=== PATIENT | male | born 1950 | race Caucasian/White ===

== ENCOUNTER → 2021-05-23 | Outpatient (CLI) | payer MEDICARE | END | disposition home or self-care (01) | LOC: LABPAT 08:46 | PROVIDERS: ATTEND Orthopaedic Surgery | DX: Z01.812 Encounter for preprocedural laboratory examination (principal); M19.011 Primary osteoarthritis, right shoulder; Z22.322 Carrier or suspected carrier of Methicillin resistant Staphylococcus aureus | CPT/HCPCS: 87070 ==

== ENCOUNTER 2021-06-24 06:37 | Day surgery (SDC) | payer MEDICARE ==
[2021-06-23 08:37] VITALS: BMI 35.9
--- NOTE | 2021-06-23 09:53 | HP ---
HISTORY AND PHYSICAL CHIEF COMPLAINT: Right shoulder pain. HISTORY OF PRESENT ILLNESS: The patient is a 71-year-old, right-hand dominant, retired gentleman who presents with progressive right shoulder pain for the past 5 years. He is having pain with overhead use and with activity. He also notes night symptoms. He has tried medications in addition to an injection and therapy, without much relief. He notes the pain bothers him daily and is limiting. PAST MEDICAL HISTORY: Significant for hyperlipidemia, hypertension, arthritis. PAST SURGICAL HISTORY: Negative. CURRENT MEDICATIONS: Enalapril and simvastatin. ALLERGIES: HE DENIES DRUG ALLERGIES. FAMILY HISTORY: Significant for stroke. SOCIAL HISTORY: Significant for social alcohol use. REVIEW OF SYSTEMS: Sixteen-point review of systems otherwise is reviewed and is noncontributory. PHYSICAL EXAMINATION: On examination, the patient is approximately 5 feet 9 inches, 238 pounds of endomorphic habitus. HEENT exam is nonfocal. Neck is supple. On examination of his right shoulder, he is tender about the anterior subacromial space and anterior glenohumeral joint. He has moderate crepitus. Active range of motion forward elevation 80 degrees, external rotation with arm to side 20 degrees, internal rotation to L5. Motor strength 5/5 for abduction and external rotation. Impingement test, Neer test, and Speed's test are positive. His distal neurovascular exam appears intact in the right upper extremity. X-rays to include AP, axillary, lateral and outlet views of the right shoulder show a severely arthritic joint with [id number] changes and subchondral sclerosis. The humeral head to acromial distance appears to be maintained. MRI of the right shoulder shows evidence of a partial-thickness rotator cuff tear in addition to rupture of the long head of the biceps and severe degenerative joint disease. IMPRESSION: Right severe glenohumeral joint osteoarthrosis. RECOMMENDATIONS: I talked to the patient at length regarding his condition along with treatment options. At this point he is quite limited because of pain related to his osteoarthrosis despite previous conservative measures. After thorough discussion, he opted to proceed with surgery. We will plan to proceed with right total shoulder arthroplasty. We will potentially keep the patient for a 23-hour hold postoperatively. Risks and benefits were discussed at length in layman's terms. MMODL / IJN: [id number] /
[~2021-06-24 06:37] MED LIST: ACETAMINOPHEN TAB 500 MG TAB PO PRN; LIDOCAINE 1% (10MG/ML) FOR IV START INTRADERMA PRN; MELOXICAM 7.5 MG TAB PO PRN; ONDANSETRON 4 MG/2 ML VIAL IVP ONE; TRANEXAMIC ACID 1,000 MG in SODIUM CHLORIDE 0.9% 100 ML IVPB PRN
[2021-06-24] MEDS: LACTATED RINGERS 1,000 ML IV SCH (06:58)
[2021-06-24] MEDS ORDERED: HYDROmorphone 0.5 MG/0.5 ML SYRINGE IVP PRN ×2 (07:00→10:01)
[2021-06-24] MEDS ORDERED: DEXAMETHASONE SOD PHOSPHATE 4 MG/ML 1 ML VIAL IVP ONE (07:17)
[2021-06-24] MEDS ORDERED: HYDROmorphone (PF) 1 MG/ML ONE (07:52)
[2021-06-24] MEDS ORDERED: PHENYLEPHRINE-0.9% NACL SYG 1,000 MCG/10 ML SYRINGE ONE (07:52)
[2021-06-24] MEDS ORDERED: LIDOCAINE 1% INJ 10MG/ML (20 ML MDV) ONE (07:52)
[2021-06-24] MEDS ORDERED: TRANEXAMIC ACID 1,000 MG/10 ML VIAL ONE (07:52)
[2021-06-24] MEDS ORDERED: fentaNYL (PF) 50 MCG/ML 2 ML AMP ONE (07:52)
[2021-06-24] MEDS ORDERED: SUCCINYLCHOLINE CHLORIDE VIAL 200 MG/10 ML VIAL IV ONE (07:52)
[2021-06-24] MEDS ORDERED: PROPOFOL 10 MG/ML 20 ML VIAL IV ONE (07:52)
[2021-06-24] MEDS ORDERED: ROCURONIUM 10 MG/ML (5 ML VIAL) IV ONE (07:52)
[2021-06-24] MEDS ORDERED: MIDAZOLAM 2 MG/2 ML VIAL ONE (07:52)
[2021-06-24] MEDS ORDERED: SODIUM CHLORIDE 0.9% 100 ML BAG ONE (07:52)
[2021-06-24] MEDS ORDERED: ceFAZolin 1,000 MG in SODIUM CHLORIDE 0.9% 1,000 ML IRRIGATION ONE (08:33)
[2021-06-24] MEDS ORDERED: SENNOSIDES-DOCUSATE SODIUM 1 EACH TAB PO PRN (10:01)
[2021-06-24] MEDS ORDERED: ONDANSETRON 4 MG/2 ML VIAL IVP PRN (10:01)
[2021-06-24] MEDS ORDERED: HYDROcodone/APAP 5-325MG 1 EACH TAB PO PRN (10:01)
[2021-06-24] MEDS ORDERED: ACETAMINOPHEN TAB 325 MG TAB PO PRN (10:03)
[2021-06-24] MEDS ORDERED: LACTATED RINGERS 1,000 ML IV ONE (10:06)
--- NOTE | 2021-06-24 10:26 | P.OP ---
Date of Procedure: 06/24/21 Preoperative Diagnosis: Right severe glenohumeral joint osteoarthrosis Postoperative Diagnosis: Same Procedure(s) Performed: Right total shoulder arthroplasty Implants: Arthrex Eclipse size 47 standard humeral head, medium cage, large cemented glenoid component. 3 push lock anchors and 2 corkscrew anchors were also utilized. Anesthesia: belle RINCON Surgeon: Barrett Bauer Solar Installation Technician #1: Surjit Forbes Estimated Blood Loss (ml): 150 Pathology: other (Humeral head) Condition: stable Disposition: PACU Indications for Procedure: The patient's a 71-year-old male who presents with progressive right shoulder pain secondary to osteoarthrosis despite previous conservative measures. A discussion of the risks and benefits of operative intervention versus continued conservative measures was made with patient. He opted to proceed with surgery. Operative risks to include infection, neurovascular injury, fracture, component loosening, instability, possible need for subsequent procedures was discussed. Informed consent was obtained. Operative Findings: As below Description of Procedure: The patient was brought to the operating room, and after induction of general an esthesia was placed in the beachchair position. The bony prominences were appropriately padded. The right upper extremity was prepped and draped in normal fashion. A deltopectoral incision was then made lateral to the coracoid process extending approximately 12 cm. The skin was incised sharply. Subcutaneous tissues were divided bluntly. Electrocautery was used for hemostasis. The deltopectoral interval was identified and the cephalic vein gently retracted laterally with the deltoid. Subdeltoid adhesions were bluntly dissected. A self-retaining retractor was placed. The clavipectoral fascia was opened and the conjoined tendon gently retracted medially. The upper one third of the pectoralis major was released to help facilitate exposure. The biceps was previously ruptured. The rotator interval was opened. The subscapularis peel was performed. The humeral head was then exposed releasing the capsule off the humeral neck. The shoulder was gently dislocated. The cutting guide was placed planning on a cut flush with the rotator cuff insertion and 30 of retroversion. The cutting block was pinned in place. The humeral head cut was then made. This measured most appropriately at 47 mm. Residual inferior osteophytes were carefully removed flush with the kaibab cortical bone. The proximal humerus was then prepared with the appropriate pull up hand. This was protected with a metal cap. A posterior glenoid retractor was placed. The glenoid was then exposed releasing the labrum from the 12-6 o'clock position. Residual labral tissue was removed. The glenoid sized most at a large. A guidewire was then inserted planning on the appropriate version. The glenoid was reamed down to a bleeding bony surface. The central pedicle was drilled. The alignment guide was placed in the superior and inferior peg holes were drilled. The inferior punch was inserted. The trial size large glenoid was placed and was fully seated. There was good anterior to posterior and inferior to superior fit. The trial component was removed. Pulsatile lavage was utilized. The bony surface was dried. The superior and inferior peg holes were then pressurized with cement utilizing a syringe. Excess cement was removed. A central peg glenoid was then placed and was fully seated. This was gently impacted. This was held in place until the cement had sufficiently hardened. A ttention was then paid again towards preparing the proximal humerus. The proximal humerus was then prepared and it was felt a medium cage was most appropriate. The trunnion was placed and then the cage screw was inserted fully. Good purchase was obtained. A trial 47 standard head was placed. The shoulder was gently reduced. It was taken through a range of motion. It was felt to be stable in flexion and extension with internal and external rotation. I felt there was adequate moravian of soft tissue tension. The shoulder was gently dislocated. The trial components were then removed. The final 47 mm head was gently impacted. The subscapularis was repaired utilizing a speed scap technique with 3 medial anchors and 2 lateral anchors. The rotator interval was closed with #2 Ethibond suture. There was minimal drainage at this point therefore a deep drain was not placed. The deltopectoral interval was closed with interrupted 2-0 Vicryl sutures. The subcu tissues were reapproximated with interrupted 2-0 Vicryl sutures. The skin was reprepped with 3-0 subcuticular Prolene suture. Steri-Strips were applied. A sterile dressing was applied in addition to a sling. The patient was then awoken from general anesthesia and transferred to recovery room in good condition. Blood loss was estimated at [] mL. No complications were incurred. Sponge and needle counts were correct at the end the case. Surjit URIBE assisted intimated case to include positioning, exposure, implantation, and closure.
[2021-06-24] MEDS ORDERED: KETOROLAC 15 MG/ML 1 ML VIAL ONE (10:35)
[2021-06-24] MEDS ORDERED: ROPIVACAINE 5 MG/ML 30 ML VIAL MISCELLANE ONE (10:54)
--- NOTE | 2021-06-24 11:26 | XR ---
EXAMINATION TYPE: XR shoulder complete RT DATE OF EXAM: 06/24/2021 CLINICAL HISTORY: Right shoulder surgery. TECHNIQUE: Single portable view of the right shoulder is obtained. COMPARISON: Outside right shoulder x-ray May 22, 2021 FINDINGS: Metallic hardware from right humeral head arthroplasty now present. Position satisfactory o n portable frontal projection. Glenoid cavity shows sclerosis and central erosive changes similar to prior. IMPRESSION: As above.
--- NOTE | 2021-06-24 11:59 | P.ANPRN ---
Procedure Note - Anesthesia - Nerve Block Performed Right Interscalene Single Time Out Performed: Yes (1121) Date of Procedure: 06/24/21 Procedure Start Time: Procedure Stop Time: Location of Patient: Phase I Indication: Acute Post-Operative Pain, Requested by Surgeon Specifically requested for management of pain by : Barrett Bauer Sedation Type: Sedate with meaningful contact maintained Preparation: Sterile Prep Position: Supine Catheter: None Needle Types: Pajunk Needle Gauge: 21 Ultrasound used to visualize needle placement: Yes Ultrasound used to observe medication spread: Yes Injectate: 0.5% Ropivacaine (see comment for volume) (20cc) Blood Aspirated: No Pain Paresthesia on Injection Noted: No Resistance on Injection: Normal Image Stored and Saved: Yes Events: Uneventful and Well Tolerated
[2021-06-25] MEDS: HYDROcodone/APAP 5-325MG 1 EACH TAB PO PRN ×2 (05:25→11:10)
[2021-06-25] MEDS: LACTATED RINGERS 1,000 ML IV SCH (05:34)
[2021-06-25] MEDS ORDERED: ASPIRIN 325 MG TAB PO SCH (09:00)
[2021-06-25] MEDS ORDERED: lisinopriL 5 MG TAB PO SCH (09:00)
[2021-06-25 09:02] LABS: HCT 40.7 % (39.6-50.0); HGB 12.6 g/dL (13.0-17.0); MCH 30.6 pg (27.0-32.0); MCV 98.8 fL (80.0-97.0); Mean Platelet Volume 9.9 fL (9.5-12.2); Platelet Count 207 X 10*3/uL (140-440); RBC 4.12 X 10*6/uL (4.40-5.60); RDW 12.7 % (11.5-14.5); WBC 12.42 X 10*3/uL (4.50-10.00)
--- NOTE | 2021-06-25 10:00 | P.DS ---
Providers Date of admission: 06/24/2021 Expected date of discharge: 06/25/21 Attending physician: Barrett Bauer Consults: 06/24/21 10:01 Consult Physician Routine Consulting Provider: [facility] Reason/Comments: medical management Do you want consulting provider notified?: Yes Primary care physician: Stated None Hospital Course: Date of admission: 06/24/2021 Date of discharge: 06/25/2021 Admission diagnosis: Right shoulder severe glenohumeral joint osteoarthrosis Discharge diagnosis: Same Attending physician: Dr. Bauer Surgical procedures: Right total shoulder arthroplasty Brief history: Patient is a 71-year-old male with a history of presents with progressive primary right shoulder glenohumeral joint osteoarthrosis. At this point patient has failed conservative treatment measures and has opted to proceed with a elective right total shoulder arthroplasty. Hospital course: Details of patient's surgery can be found in operative report. Patient tolerated the procedure well and was subsequently transported to orthopedic floor. Patient's orthopeidc and medical care was provided daily. Patient had daily laboratory tests performed for evaluation of overall blood counts. Patient had daily physical therapy to include strengthening range of motion as well as education with walker ambulation. Patient was noted to have a relatively uneventful postoperative course. Patient reported satisfactory pain control with oral pain medications by postoperative day 1. Patient showed satisfactory progress with physical therapy. Patient moved steadily through the program and had no difficulty meeting the goals by postoperative day 1. Given patient's otherwise satisfactory course and having met physical therapy goals, plan is to discharge patient home on postoperative day 1. Discharge condition/disposition: Patient will be discharged home in stable condition. Discharge medications: Instructions are given on resumption of patient's normal daily medications per primary care recommendation, in addition patient will be prescribed [place]ckenna 7.5 mg/325mg; Aspirin 325 mg daily Discharge instructions: 1. Wound care and infection precautions, keep incision dry and covered while showering, no lotions, creams, moisturizers. No soaking, tubs, pools, hottubs. Do not scrub over the incision. 2. Weight-bear as tolerated 3. Ice when necessary. Do not exceed 20 minutes per hour with ice pack. 4. Keep sling on until visit with us in 2 weeks in office. May flex and extend at the wrist and elbow. May take the sling off during meals. 5. Pain meds per prescription. 6. Pain medication has potential to cause constipation. Increase oral fluid and fiber intake. Contact primary care provider if you have not had a bowel movement within 48 hours after discharge 7. No anti-inflammatory medication until discussed at first post operative visit, this including Motrin, Aleve, Mobic, Diclofenac. 8. Follow up in office at 2 weeks postop with Baljeet Pike PA-C / Surjit Forbes PA-C 9. Follow up with your primary care doctor 7-10 days after discharge. 10. Contact [facility] with any questions, . Assessment: Right shoulder severe glenohumeral joint osteoarthrosi Procedures: Right total shoulder arthroplasty Patient Condition at Discharge: Good Plan - Discharge Summary Discharge Rx Participant: Yes New Discharge Prescriptions: New HYDROcodone/APAP 5-325MG [[place] 5-325] 1 tab PO Q6HR PRN #32 tab PRN Reason: Pain Aspirin 325 mg PO DAILY #30 tab No Action Simvastatin [Zocor] 10 mg PO HS Naproxen Sodium [Aleve] 440 mg PO DAILY Enalapril Maleate [Vasotec] 5 mg PO DAILY Bliss-3 Fatty Acids/Fish Oil [Fish Oil 1,000 mg Softgel] 1 each PO DAILY Multivitamins, Thera [Multivitamin (formulary)] 1 tab PO DAILY Vitamin E 100 unit PO DAILY Vitamin B Complex 1 each PO DAILY Glucosamine HCl/Chondroitin Mireles [Glucosamine-Chondroitin Cap] 1 each PO DAILY Discharge Medication List Enalapril Maleate [Vasotec] 5 mg PO DAILY 06/23/21 [History] Glucosamine HCl/Chondroitin Mireles [Glucosamine-Chondroitin Cap] 1 each PO DAILY 06/23/21 [History] Multivitamins, Thera [Multivitamin (formulary)] 1 tab PO DAILY 06/23/21 [History] Naproxen Sodium [Aleve] 440 mg PO DAILY 06/23/21 [History] Bliss-3 Fatty Acids/Fish Oil [Fish Oil 1,000 mg Softgel] 1 each PO DAILY 06/23/21 [History] Simvastatin [Zocor] 10 mg PO HS 06/23/21 [History] Vitamin B Complex 1 each PO DAILY 06/23/21 [History] Vitamin E 100 unit PO DAILY 06/23/21 [History] Aspirin 325 mg PO DAILY #30 tab 06/25/21 [Rx] HYDROcodone/APAP 5-325MG [[place] 5-325] 1 tab PO Q6HR PRN #32 tab 06/25/21 [Rx] Follow up Appointment(s)/Referral(s): Surjit Forbes PAC [PHYSICIAN [employer]] - 07/10/21 9:20 am Patient Instructions/Handouts: Shoulder Arthroplasty (GEN) Activity/Diet/Wound Care/Special Instructions: Discharge instructions: 1. Wound care and infection precautions, keep incision dry and covered while showering, no lotions, creams, moisturizers. No soaking, tubs, pools, hottubs. Do not scrub over the incision. 2. Weight-bear as tolerated 3. Ice when necessary. Do not exceed 20 minutes per hour with ice pack. 4. Keep sling on until visit with us in 2 weeks in office. May flex and extend at the wrist and elbow. May take the sling off during meals. 5. Pain meds per prescription. 6. Pain medication has potential to cause constipation. Increase oral fluid and fiber intake. Contact primary care provider if you have not had a bowel movement within 48 hours after discharge 7. No anti-inflammatory medication until discussed at first post operative visit, this including Motrin, Aleve, Mobic, Diclofenac. 8. Follow up in office at 2 weeks postop with Baljeet Pike PA-C / Surjit Forbes PA-C 9. Follow up with your primary care doctor 7-10 days after discharge. 10. Contact [facility] with any questions, . Take Aspirin 325 mg daily x 2 weeks Discharge Disposition: HOME SELF-CARE
--- NOTE | 2021-06-25 10:01 | P.PN ---
Subjective Progress Note Date: 06/25/21 Principal diagnosis: Right shoulder severe glenohumeral joint osteoarthrosis Patient was seen at bedside this morning resting comfortably sitting semirecumbent. Patient states his pain as 3/10 currently. He says he has not gotten up today, however, he says he did get up yesterday walker on room. He mentions this sling is somewhat uncomfortable. Patient says he is ready to go home today. Patient denies chest pain, fever, shortness of breath, nausea, vomiting, change in vision, loss of bowel/bladder control. Patient denies any numbness/tingling in the arm. Objective - Vital Signs Vital signs: Vital Signs Temp 98.0 F 06/25/21 07:52 Pulse 67 06/25/21 07:52 Resp 16 06/25/21 07:52 BP 141/76 06/25/21 07:52 Pulse Ox 91 L 06/25/21 07:52 Intake & Output 06/24/21 06/25/21 06/25/21 18:59 06:59 18:59 Intake Total 851 236 Output Total 150 4 200 Balance 701 -4 36 Weight 108.9 kg Intake: IV 851 Oral 236 Output: Urine 4 200 Estimated Blood Loss 150 Other: # Voids 1 3 1 - Exam Right shoulder: Incision is clean, dry, intact. There is no evidence of purulence/fluctuance/d rainage from incision. Sutures intact. There is minimal ecchymosis/swelling. There is some tenderness to palpation along the anterior right shoulder region. Sensation is equal, symmetric, bilaterally intact in upper extremities. Radial pulses intact, bilaterally 2+. Cap refill under 3 seconds bilaterally in digits of upper extremity - Labs CBC & Chem 7: 06/25/21 05:35 Labs: Abnormal Lab Results - Last 24 Hours (Table) 06/25/21 Range/Units 05:35 WBC 12.42 H (4.50-10.00) X 10*3/uL RBC 4.12 L (4.40-5.60) X 10*6/uL Hgb 12.6 L (13.0-17.0) g/dL MCV 98.8 H (80.0-97.0) fL MCHC 31.0 L (32.0-37.0) g/dL Assessment and Plan Assessment: Postoperative day #1 status post right total shoulder arthroplasty Plan: 1. Right shoulder severe glenohumeral joint osteoarthrosis - right total shoulder arthroplasty performed yesterday, 06/24/2021. Patient stable this morning plan for discharge home today. 2. Appreciate medical management 3. Pain management - stable at this time. Going home with [place] 5 mg/325 mg 4. DVT prophylaxis - aspirin 325 mg; going home with aspirin 325 mg 5. GI prophylaxis - senna 6. PT/OT - nonweightbearing right arm. 7. Discharge planning - plan for discharge home today. Time with Patient: Less than 30
[2021-06-25 10:35] LABS: Basophils # (A) 0.02 X 10*3/uL (0.00-0.10); Basophils % (A) 0.2 %; Eosinophils # (A) 0.03 X 10*3/uL (0.04-0.35); Eosinophils % (A) 0.2 %; Lymphocytes # (A) 2.08 X 10*3/uL (0.90-5.00); Lymphocytes % (A) 16.7 %; Monocytes % (A) 12.9 %; Neutrophils # (A) 8.64 X 10*3/uL (1.80-7.70); Neutrophils % (A) 69.6 %
[2021-06-25 11:46] VITALS: BP 156/70; PULSE 66; RESP 18; TEMP 98.1
[2021-06-25] MEDS ORDERED: ATORVASTATIN 10 MG TAB PO SCH (21:00)
--- NOTE | 2021-06-25 23:46 | P.CONS ---
History of Present Illness - Reason for Consult Consult date: 06/25/21 Medical management - Chief Complaint Status post Right total shoulder arthroplasty - History of Present Illness Patient is a 71-year-old male with a known history of hypertension, hyperlipidemia, osteoarthritis, obstructive sleep apnea on CPAP at home and previous history of smoking was admitted to the hospital for elective right total shoulder arthroplasty. Patient developed right shoulder pain and severe glenohumeral humeral joint osteoarthritis. Failed conservative measures and patient was admitted to the hospital for surgery. Patient is status post surgery postoperative day 1. Currently right shoulder pain is better controlled. Pain is a 3 out of 10 at this time. Patient able to get out of the bathroom. No complaints of chest pain or shortness of. No nausea vomiting abdominal pain or diarrhea. Laboratory data showed WBC 12.42 hemoglobin 12.6 and platelets 207 COVID-19 PCR not detected Postoperatively blood pressure went down to 94/36 mmHg Review of Systems Constitutional: Patient denies any fever or chills . No generalized weakness or weight loss. Abdomen: Patient denied nausea vomiting and diarrhea and abdominal pain. Cardiovascular: Patient denies any chest pain or short of breath no palpitations. Respiratory: patient denied any cough or sputum production. No shortness of breath Neurologic: Patient denied any numbness or tingling headache. Musculoskeletal: Patient denies any complaints of joint swelling or deformity.Right shoulder pain Skin: Negative Psychiatric: Negative Endocrine: No heat or cold intolerance. No recent weight gain. Genitourinary: No dysuria or hematuria. All other 14 point ROS negative except the above Past Medical History Past Medical History: Hyperlipidemia, Hypertension, Osteoarthritis (OA), Sleep Apnea/CPAP/BIPAP Additional Past Medical History / Comment(s): uses CPAP History of Any Multi-Drug Resistant Organisms: None Reported Additional Past Surgical History / Comment(s): abscess rectal fistula, colonoscopies Past Anesthesia/Blood Transfusion Reactions: No Reported Reaction Past Psychological History: No Psychological Hx Reported Smoking Status: Former smoker Past Alcohol Use History: Occasional Additional Past Alcohol Use History / Comment(s): quit smoking 35 yrs. ago, smoked for 25 yrs., <ppd Past Drug Use History: None Reported - Past Family History Mother Family Medical History: No Reported History Medications and Allergies Home Medications Medication Instructions Recorded Confirmed Type Enalapril Maleate [Vasotec] 5 mg PO DAILY 06/23/21 06/24/21 History Glucosamine HCl/Chondroitin Mireles 1 each PO DAILY 06/23/21 06/24/21 History [Glucosamine-Chondroitin Cap] Multivitamins, Thera [Multivitamin 1 tab PO DAILY 06/23/21 06/24/21 History (formulary)] [place]-3 Fatty Acids/Fish Oil [Fish 1 each PO DAILY 06/23/21 06/24/21 History Oil 1,000 mg Softgel] Simvastatin [Zocor] 10 mg PO HS 06/23/21 06/24/21 History Vitamin B Complex 1 each PO DAILY 06/23/21 06/24/21 History Vitamin E 100 unit PO DAILY 06/23/21 06/24/21 History Aspirin 325 mg PO DAILY #30 tab 06/25/21 Rx HYDROcodone/APAP 5-325MG [[place] 1 tab PO Q6HR PRN #32 tab 06/25/21 Rx 5-325] Naproxen Sodium [Aleve] 440 mg PO DAILY PRN #0 06/25/21 06/24/21 Rx Allergies Allergy/AdvReac Type Severity Reaction Status Date / Time No Known Allergies Allergy Verified 06/24/21 06:52 Physical Exam Vitals: Vital Signs Temp Pulse Resp BP Pulse Ox 06/25/21 07:52 98.0 F 67 16 141/76 91 L 06/25/21 07:30 67 16 06/25/21 02:00 98.6 F 72 144/75 92 L 06/24/21 20:00 97.6 F 70 15 130/63 95 06/24/21 14:00 97.5 F L 60 18 124/66 92 L 06/24/21 13:30 51 L 16 115/63 99 06/24/21 13:02 66 16 133/51 96 06/24/21 12:31 57 L 16 101/54 92 L 06/24/21 12:02 57 L 16 101/45 93 L 06/24/21 11:47 65 16 104/43 93 L 06/24/21 11:32 59 L 16 123/59 93 L 06/24/21 11:16 57 L 16 105/55 97 Intake and Output 06/24/21 06/25/21 06/25/21 22:59 06:59 14:59 Intake Total 236 Output Total 4 200 Balance -4 36 Intake: Oral 236 Output: Urine 4 200 Other: # Voids 3 3 1 PHYSICAL EXAMINATION: Patient is lying in the bed comfortably, no acute distress, awake alert and oriented.. HEENT: Normocephalic. Neck is supple. Pupils reactive. Nostrils clear. Oral cavity is moist. Neck reveals no JVD, carotid bruits, or thyromegaly. CHEST EXAMINATION: Trachea is central. Symmetrical expansion. Lung fortune clear to auscultation and percussion. CARDIAC: Normal S1, S2 with no gallops. No murmurs ABDOMEN: Soft. Bowel sounds normal. No organomegaly. No abdominal bruits. Extremities: reveal no edema. No clubbing or cyanosis Neurologically awake, alert, oriented x3 with well-coordinated movements. No fo carlos deficits noted Skin: No rash or skin lesions. Psychiatric: Cooperative. Nonsuicidal Musculoskeletal: No joint swelling or deformity. Right shoulder surgical site is bandaged. Results CBC & Chem 7: 06/25/21 05:35 Labs: Abnormal Lab Results - Last 24 Hours (Table) 06/25/21 Range/Units 05:35 WBC 12.42 H (4.50-10.00) X 10*3/uL RBC 4.12 L (4.40-5.60) X 10*6/uL Hgb 12.6 L (13.0-17.0) g/dL MCV 98.8 H (80.0-97.0) fL MCHC 31.0 L (32.0-37.0) g/dL Immature Gran # 0.05 H (0.00-0.04) X 10*3/uL Neutrophils # 8.64 H (1.80-7.70) X 10*3/uL Monocytes # 1.60 H (0.20-1.00) X 10*3/uL Eosinophils # 0.03 L (0.04-0.35) X 10*3/uL Assessment and Plan Assessment: Status post right total shoulder arthroplasty. Mild leukocytosis likely due to postoperative inflammation Hypertension. Not elevated. Hyperlipidemia COPD Prior history of smoking Obesity with BMI 36.0 DVT prophylaxis Plan: Patient is being continued on pain management, bowel regimen and incentive spirometry. Patient is able to ambulate and sit up in the chair. Blood press ure medications will be started back upon discharge. Pain is fairly controlled. Follow-up PCP to check CBC to monitor for hemoglobin level. Continue with DVT and GI prophylaxis. Further recommendations based on clinical course. Thank you for your consult.
== END 2021-06-25 12:38 | disposition home or self-care (01) ==
LOC: OR 06:37 → 4SSUR 13:40 → OR 06-25 12:38
PROVIDERS: ATTEND Orthopaedic Surgery
DX: M19.011 Primary osteoarthritis, right shoulder (principal); E78.5 Hyperlipidemia, unspecified; R73.02 Impaired glucose tolerance (oral); E66.9 Obesity, unspecified; I77.819 Aortic ectasia, unspecified site; I10 Essential (primary) hypertension; Z20.822 Contact with and (suspected) exposure to COVID-19; Z68.36 Body mass index [BMI] 36.0-36.9, adult; Z97.3 Presence of spectacles and contact lenses; M75.91 Shoulder lesion, unspecified, right shoulder; Z86.010 Personal history of colon polyps; Z98.890 Other specified postprocedural states; Z87.891 Personal history of nicotine dependence; Z82.3 Family history of stroke; Z79.1 Long term (current) use of non-steroidal anti-inflammatories (NSAID); Z79.899 Other long term (current) drug therapy
CPT/HCPCS: 64415; 76942; 85025; 88300; 87635; 73030; 23472; C1713; C1776; J2250; J0330; J1100; J0690 ×2; J2405; J2001; J3010; J1170 ×2; J2795; J1885; J2370; J2704